=== PATIENT | male | born 1970 | race Caucasian/White ===

== ENCOUNTER 2020-04-10 19:28 | Emergency (ER) | payer MEDICAID ==
[~2020-04-10] VITALS: Ht 182.9 cm; Wt 99.8 kg
[2020-04-10] MEDS ORDERED: FLUO20CA36 PO (19:38)
[2020-04-10] MEDS ORDERED: [UNRECOGNIZED DRUG - OTHER] (19:38)
[2020-04-10] MEDS ORDERED: IBUP-1957 PO (19:38)
[2020-04-10] MEDS ORDERED: BUPR-96 PO (19:38)
[2020-04-10] MEDS ORDERED: DIVA500T2 PO (19:38)
[2020-04-10] MEDS ORDERED: ARIP10TA9 PO (19:38)
[2020-04-10] MEDS ORDERED: LIDOCAINE HCL 2% 20 ML VIAL TP ONE (20:30)
[2020-04-10 21:19] VITALS: BP 118/85
--- NOTE | 2020-04-10 21:19 | NUR ---
Patient discharged to home in stable condition. Written and verbal after care instructions given. Patient verbalizes understanding of instructions. Stressed follow up or return to ER for worsening s/s.
== END 2020-04-10 21:20 | disposition home or self-care (01) ==
LOC: ER 19:31
DX: L02.413 Cutaneous abscess of right upper limb (principal); S51.811S Laceration without foreign body of right forearm, sequela; W26.8XXS Contact with other sharp object(s), not elsewhere classified, sequela; Z79.899 Other long term (current) drug therapy; F31.9 Bipolar disorder, unspecified; F17.200 Nicotine dependence, unspecified, uncomplicated
CPT/HCPCS: 10060; 99283; J3490; A4663

== ENCOUNTER 2020-04-12 15:17 | Emergency (ER) | payer MEDICAID ==
[~2020-04-12] VITALS: Ht 182.9 cm; Wt 99.8 kg
[~2020-04-12 15:17] MED LIST: ARIP10TA9 PO; BUPR-96 PO; DIVA500T2 PO; FLUO20CA36 PO; IBUP-1957 PO; [UNRECOGNIZED DRUG - OTHER]
[2020-04-12] MEDS ORDERED: SULF1TAB48 PO (15:26)
--- NOTE | 2020-04-12 15:30 | NUR ---
Dr. Jo at bedside for MSE
--- NOTE | 2020-04-12 15:45 | NUR ---
Patient discharged to home in stable condition. Written and verbal after care instructions given. Patient verbalizes understanding of instructions. Stressed follow up or return to ER for worsening s/s. Patient ambulated with steady gait. NAD noted
[2020-04-12 16:04] VITALS: BP 138/72
== END 2020-04-12 15:45 | disposition home or self-care (01) ==
LOC: ER 15:19
DX: Z48.817 Encounter for surgical aftercare following surgery on the skin and subcutaneous tissue (principal); L02.413 Cutaneous abscess of right upper limb; F31.9 Bipolar disorder, unspecified; Z79.899 Other long term (current) drug therapy
CPT/HCPCS: A4663

== ENCOUNTER 2020-04-16 18:22 | Emergency (ER) | payer MEDICAID ==
[~2020-04-16] VITALS: Ht 182.9 cm; Wt 99.8 kg
[~2020-04-16 18:22] MED LIST changes: +SULF1TAB48 PO
[2020-04-16] MEDS ORDERED: BICT1TAB PO (18:52)
[2020-04-16] MEDS ORDERED: VANCOMYCIN IV 200 ML ONE (18:59)
[2020-04-16] MEDS ORDERED: VANCOMYCIN IV 1,000 MG in IV DEXTROSE 5% 250 ML IV ONE (19:00)
--- NOTE | 2020-04-16 19:00 | NUR ---
Received patient from frannymavenu GUERRERO MD noted in room for assessment
[2020-04-16 19:02] LABS: BASOPHILS # (AUTO) 0.1 K/uL (0.0-8.0); BASOPHILS % (AUTO) 0.8 % (0.0-2.0); EOSINOPHILS # (AUTO) 0.1 K/uL (0.0-0.7); EOSINOPHILS % (AUTO) 1.9 % (0.0-7.0); HEMATOCRIT 42.6 % (36.7-47.1); HEMOGLOBIN 14.7 g/dL (12.5-16.3); LYMPHOCYTES # (AUTO) 1.7 K/uL (20.0-40.0); LYMPHOCYTES % (AUTO) 24.7 % (20.5-51.5); MEAN CORPUSCULAR HEMOGLOBIN 31.9 uug (23.8-33.4); MEAN CORPUSCULAR HGB CONC 35 g/dL (32.5-36.3); MEAN CORPUSCULAR VOLUME 92.2 fL (73.0-96.2); MONOCYTES # (AUTO) 0.7 K/uL (2.0-10.0); MONOCYTES % (AUTO) 9.8 % (0.0-11.0); NEUTROPHILS # (AUTO) 4.2 K/uL (1.8-8.9); NEUTROPHILS % (AUTO) 62.8 % (38.5-71.5); PLATELET COUNT (AUTO) 227 K/uL (152-348); RED BLOOD CELL COUNT(AUTO) 4.62 MIL/uL (4.06-5.63); WHITE BLOOD COUNT (AUTO) 6.7 K/uL (3.6-10.2)
[2020-04-16 19:09] LABS: CREATININE 1.2 mg/dL (0.6-1.3); POTASSIUM 3.9 mmol/L (3.5-5.1)
--- NOTE | 2020-04-16 20:21 | NUR ---
IV discontinued at this time, right forearm abcess margins marked and patient instructed to return in skin redness extends past marked margins
--- NOTE | 2020-04-16 20:22 | NUR ---
Patient discharged to home in stable condition. Ambulated with steady gait, took all belongings, no distress noted, Written and verbal after care instructions given. Patient verbalizes understanding of instructions. Stressed follow up or return to ER for worsening s/s.
[2020-04-16 20:23] VITALS: BP 113/77
== END 2020-04-16 20:21 | disposition home or self-care (01) ==
LOC: ER 18:24
DX: Z48.817 Encounter for surgical aftercare following surgery on the skin and subcutaneous tissue (principal); L02.414 Cutaneous abscess of left upper limb; F31.9 Bipolar disorder, unspecified; F17.200 Nicotine dependence, unspecified, uncomplicated
CPT/HCPCS: 36415; 80048; 85025; 87070; 96365; 99284; J3370; A4663

== ENCOUNTER 2021-10-06 21:22 | Emergency (ER) | payer MEDICAID ==
[~2021-10-06] VITALS: Ht 182.9 cm; Wt 103.0 kg
[~2021-10-06 21:22] MED LIST changes: +BICT1TAB PO; -SULF1TAB48 PO; -[UNRECOGNIZED DRUG - OTHER]
[2021-10-06] MEDS: ASPIRIN 81 MG TAB.CHEW PO ONE (22:12)
[2021-10-06 22:20] LABS: CARBON DIOXIDE 27 mmol/L (21-32); CHLORIDE 104 mmol/L (98-107); CREATININE 0.9 mg/dL (0.6-1.3); GLUCOSE 136 mg/dL (74-106); HEMATOCRIT 44.2 % (36.7-47.1); PLATELET COUNT (AUTO) 215 K/uL (152-348); POTASSIUM 3.6 mmol/L (3.5-5.1); UREA NITROGEN, BLOOD 18 mg/dL (7-18)
[2021-10-06] MEDS ORDERED: ASPIRIN 81 MG TAB.CHEW ONE (22:20)
[2021-10-06 22:33] LABS: ALANINE AMINOTRANSFERASE 32 U/L (16-63); ALKALINE PHOSPHATASE 84 U/L (50-136); ASPARTATE AMINOTRANSFERASE 14 U/L (15-37); BILIRUBIN,DIRECT 0.1 mg/dL (0.0-0.2); BILIRUBIN,TOTAL 0.5 mg/dL (0.2-1.0); TOTAL PROTEIN, SERUM 7.1 g/dL (6.4-8.2)
--- NOTE | 2021-10-06 23:23 | NUR ---
cleared for d/c by MD. [facility] instructions provided in verbal and written form, pt verbalised understanding. MD and RN stressed need for follow up following todays vist and S/S of worsening condition that would require return to ER for. pt ambulated out of dept under own power, NAD noted.
[2021-10-06 23:30] VITALS: BP 132/79
== END 2021-10-06 23:34 | disposition home or self-care (01) ==
LOC: ER 21:25
DX: R07.2 Precordial pain (principal); F17.210 Nicotine dependence, cigarettes, uncomplicated; F31.9 Bipolar disorder, unspecified; R60.0 Localized edema; Z79.899 Other long term (current) drug therapy
CPT/HCPCS: 36415; 71045; 83735; 84443; 84484; 85025; 85730; 93005; A4663

== ENCOUNTER 2022-05-15 12:15 | Emergency (ER) | payer MEDICAID ==
[~2022-05-15] VITALS: Ht 182.9 cm; Wt 99.8 kg
--- NOTE | 2022-05-15 12:30 | NUR ---
patient seen by dr. brandon
[2022-05-15] MEDS ORDERED: SULF1TAB48 PO (12:36)
[2022-05-15] MEDS ORDERED: MUPI22OI2 TP (12:36)
[2022-05-15] MEDS ORDERED: CEPH500C2 PO (12:36)
--- NOTE | 2022-05-15 12:45 | NUR ---
discharge paper work given to patient.
== END 2022-05-15 12:55 | disposition home or self-care (01) ==
LOC: ER 12:15
DX: J34.0 Abscess, furuncle and carbuncle of nose (principal); F17.210 Nicotine dependence, cigarettes, uncomplicated; F31.9 Bipolar disorder, unspecified; Z79.899 Other long term (current) drug therapy
CPT/HCPCS: A4663

== ENCOUNTER 2022-05-17 01:49 | Emergency (ER) | payer MEDICAID ==
[~2022-05-17] VITALS: Ht 182.9 cm; Wt 102.1 kg
[~2022-05-17 01:49] MED LIST changes: +CEPH500C2 PO; -FLUO20CA36 PO; +MUPI22OI2 TP; +SULF1TAB48 PO
[2022-05-17] MEDS ORDERED: OXYCODONE/APAP 5-325 MG TABLET PO ONE (02:15)
[2022-05-17] MEDS ORDERED: VANCOMYCIN IV 1,000 MG in IV DEXTROSE 5% 250 ML IV ONE (02:15)
[2022-05-17] MEDS ORDERED: PIPERACILLIN SODIUM/TAZOBACTAM 3.375 G in IV DEXTROSE 5% 50 ML IV ONE (02:15)
--- NOTE | 2022-05-17 02:18 | NUR ---
Sandeep quach in [facility] - 05/17/22 at 0344 by [email or web address] Patient back from ct scan with no distress noted
[2022-05-17] MEDS ORDERED: VANCOMYCIN IV 200 ML ONE (02:27)
[2022-05-17] MEDS ORDERED: PIPERACILLIN/TAZOBACTAM/D5W 50 ML IV ONE (02:27)
[2022-05-17] MEDS ORDERED: OXYCODONE/APAP 5-325 MG TABLET ONE (02:28)
[2022-05-17] MEDS ORDERED: IOHEXOL 300MG/ML 100 ML INFUS..BTL ONE (02:48)
[2022-05-17] MEDS ORDERED: SWABABLE VALVE TRANSFER SET EA MC ONE (02:48)
[2022-05-17] MEDS ORDERED: IV NORMAL SALINE 250 ML IV ONE (02:49)
--- NOTE | 2022-05-17 02:57 | NUR ---
Patient out of unit for ct scan via wheelchair with no distress noted.
[2022-05-17 03:10] LABS: HEMATOCRIT 46.5 % (36.7-47.1); MEAN CORPUSCULAR HEMOGLOBIN 31.4 uug (23.8-33.4); MEAN CORPUSCULAR VOLUME 91.9 fL (73.0-96.2); PLATELET COUNT (AUTO) 185 K/uL (152-348)
[2022-05-17 03:15] LABS: CREATININE 1.1 mg/dL (0.6-1.3); POTASSIUM 4.1 mmol/L (3.5-5.1)
--- NOTE | 2022-05-17 03:15 | NUR ---
Patient back from ct scan with no distress noted
[2022-05-17 03:22] LABS: BILIRUBIN,DIRECT 0.1 mg/dL (0.0-0.2); BILIRUBIN,TOTAL 0.4 mg/dL (0.2-1.0); TOTAL PROTEIN, SERUM 7.6 g/dL (6.4-8.2)
--- NOTE | 2022-05-17 03:47 | NUR ---
Paged Epic panel sanitation officer, waiting for Zuleyma Fletcher to call back.
--- NOTE | 2022-05-17 03:49 | NUR ---
Dr. Neil on panel call with Zuleyma Fletcher NP.
[2022-05-17] MEDS ORDERED: REMEDY ESSENTIAL ZINC PASTE 113 GM TP PRN (04:00)
[2022-05-17] MEDS ORDERED: ONDANSETRON 4 MG/2 ML VIAL IV PRN (04:00)
[2022-05-17] MEDS ORDERED: ACETAMINOPHEN 325 MG TABLET PO PRN (04:00)
[2022-05-17] MEDS ORDERED: MAGNESIUM HYDROXIDE 30 ML LIQUID UDC PO PRN (04:00)
[2022-05-17] MEDS ORDERED: IV NS 1000 ML 1,000 ML IV PRN (04:00)
[2022-05-17] MEDS ORDERED: CLINDAMYCIN PHOSPHATE 600 MG/4 ML VIAL ONE (05:13)
[2022-05-17] MEDS ORDERED: CLINDAMYCIN PHOSPHATE IV 600 MG in IV DEXTROSE 5% 100 ML IV ONE ×3 (05:15→21:30)
[2022-05-17] MEDS ORDERED: PANTOPRAZOLE SODIUM 40 MG TABLET.DR PO SCH (07:00)
[2022-05-17] MEDS ORDERED: PANTOPRAZOLE SODIUM 40 MG TABLET.DR PO ONE (07:42)
[2022-05-17] MEDS ORDERED: CEFEPIME HCL 1 G in IV DEXTROSE 5% 50 ML IV SCH (09:00)
--- NOTE | 2022-05-17 09:08 | NUR ---
PT IS RESTING IN BED IN ROOM #1B. DR CHENG TALKED TO ER MD HELLER , CANCELLED PT's ADMISSION TO M/S FLOOR AND ASKED ENGAGEMENT EXECUTIVE TO ARRANGE PT's TRANSFER TO THE [facility].
[2022-05-17] MEDS ORDERED: HYDROCODONE/APAP 5-325MG TABLET ONE ×2 (10:12→14:32)
[2022-05-17] MEDS: HYDROCODONE/APAP 5-325MG TABLET PO PRN ×2 (10:14→14:40)
--- NOTE | 2022-05-17 10:14 | NUR ---
DR HELLER CANCELLED VANCOMYCIN IV ADMINISTRATION.
--- NOTE | 2022-05-17 11:00 | NUR ---
DR HELLER TALKED TO PT's PIPELINE GANG SUPERVISOR ABOUT PT's TRANSFER TO [facility].
[2022-05-17] MEDS ORDERED: VANCOMYCIN IV 1,500 MG in IV DEXTROSE 5% 500 ML IV SCH (13:00)
[2022-05-17] MEDS ORDERED: CLINDAMYCIN PHOSPHATE IV 600 MG in IV DEXTROSE 5% 100 ML IV SCH ×2 (13:15→13:30)
--- NOTE | 2022-05-17 14:06 | NUR ---
CORPORATE AUDITOR CALLED AND TALKED TO DR HELLER ABOUT PT's TRANSFER TO [facility]. PT STILL GOING TO WAIT , BECAUSE NO AVAILABLE ROOMS IN [facility] AT THIS TIME.
--- NOTE | 2022-05-17 18:27 | NUR ---
PT DECIDED TO LEAVE HOSPITAL AMA. DR HELLER EXPLAINED ALL RISKS OF LEAVING HOSPITAL ER AMA. PT VERBALISED FULL UNDERSTANDING. PT SIGNED AMA FORM AND LEFT HOSPITAL WITH HIS FRIEND BY TAXI.
[2022-05-17 18:34] VITALS: BP 142/75
[2022-05-18] MEDS ORDERED: CLINDAMYCIN PHOSPHATE IV 600 MG in IV DEXTROSE 5% 100 ML IV ONE (05:30)
== END 2022-05-17 18:36 | disposition left against medical advice (07) ==
LOC: ER 01:49
DX: K04.7 Periapical abscess without sinus (principal); J34.0 Abscess, furuncle and carbuncle of nose; R00.0 Tachycardia, unspecified; F17.210 Nicotine dependence, cigarettes, uncomplicated; D72.828 Other elevated white blood cell count; Z20.822 Contact with and (suspected) exposure to COVID-19; Z53.29 Procedure and treatment not carried out because of patient's decision for other reasons; L03.211 Cellulitis of face
CPT/HCPCS: 99285; 96365; 70487; 96367; 96361; 96366 ×2; 87426; 80076; 80048; 83735; 85025; 87040 ×2; 36415; 83605; J3490; Q9967; J2543; J3370; J7040; A4663

== ENCOUNTER 2023-03-03 20:58 | Emergency (ER) | payer MEDICAID ==
[~2023-03-03] VITALS: Ht 182.9 cm; Wt 98.4 kg
[~2023-03-03 20:58] MED LIST changes: -ARIP10TA9 PO; -BUPR-96 PO; -DIVA500T2 PO
[2023-03-03] MEDS ORDERED: CEFTRIAXONE 1 G VIAL ONE (21:24)
[2023-03-03] MEDS ORDERED: CLINDAMYCIN HCL 150 MG CAPSULE ONE (21:25)
[2023-03-03] MEDS ORDERED: LIDOCAINE HCL 1% 20 ML VIAL ONE (21:25)
[2023-03-03] MEDS ORDERED: CLINDAMYCIN HCL 150 MG CAPSULE PO ONE (21:30)
[2023-03-03] MEDS ORDERED: CEFTRIAXONE 1 G VIAL IM ONE (21:30)
[2023-03-03] MEDS ORDERED: CLIN300C12 PO (21:30)
[2023-03-03 21:49] VITALS: BP 142/89; O2SAT 97
== END 2023-03-03 21:49 | disposition home or self-care (01) ==
LOC: ER 20:58
DX: S30.860A Insect bite (nonvenomous) of lower back and pelvis, initial encounter (principal); L03.317 Cellulitis of buttock; F17.210 Nicotine dependence, cigarettes, uncomplicated; Z71.6 Tobacco abuse counseling; Z79.1 Long term (current) use of non-steroidal anti-inflammatories (NSAID); Z79.899 Other long term (current) drug therapy; W57.XXXA Bitten or stung by nonvenomous insect and other nonvenomous arthropods, initial encounter; Y93.89 Activity, other specified; Y92.89 Other specified places as the place of occurrence of the external cause; Y99.8 Other external cause status
CPT/HCPCS: 99283; 99406; 96372; J0696; J3490; A4663

== ENCOUNTER 2024-08-07 02:29 | Emergency (ER) | payer MEDICAID ==
[~2024-08-07] VITALS: Ht 182.9 cm; Wt 104.3 kg
[~2024-08-07 02:29] MED LIST changes: +CLIN300C12 PO
[2024-08-07 03:31] LABS: BASOPHILS % (AUTO) 0.3 % (0.0-2.0); EOSINOPHILS # (AUTO) 0.1 K/uL (0.0-0.7); EOSINOPHILS % (AUTO) 0.6 % (0.0-7.0); HEMATOCRIT 47.4 % (36.7-47.1); HEMOGLOBIN 16.4 g/dL (12.5-16.3); LYMPHOCYTES # (AUTO) 1.5 K/uL (0.8-4.8); LYMPHOCYTES % (AUTO) 10.3 % (20.5-51.5); MEAN CORPUSCULAR HEMOGLOBIN 32.9 uug (23.8-33.4); MEAN CORPUSCULAR HGB CONC 35 g/dL (32.5-36.3); MEAN CORPUSCULAR VOLUME 95.2 fL (73.0-96.2); MONOCYTES # (AUTO) 1.2 K/uL (0.1-1.30); MONOCYTES % (AUTO) 8.1 % (0.0-11.0); NEUTROPHILS # (AUTO) 12.1 K/uL (1.8-8.9); NEUTROPHILS % (AUTO) 80.7 % (38.5-71.5); PLATELET COUNT (AUTO) 139 K/uL (152-348); RED BLOOD CELL COUNT(AUTO) 4.98 MIL/uL (4.06-5.63); RED CELL DISTRIBUTION WIDTH 13.7 % (12.1-16.2)
[2024-08-07 03:34] LABS: DIFFERENTIAL COMMENT 1
[2024-08-07 03:41] LABS: CALCIUM 8.3 mg/dL (8.5-10.1); CREATININE 0.9 mg/dL (0.6-1.3)
[2024-08-07] MEDS ORDERED: IOHEXOL 350 100 ML INFUS..BTL ONE (03:46)
[2024-08-07 03:47] LABS: ALBUMIN 3.4 g/dL (3.4-5.0); BILIRUBIN,TOTAL 0.7 mg/dL (0.2-1.0); TOTAL PROTEIN, SERUM 7.5 g/dL (6.4-8.2)
[2024-08-07] MEDS ORDERED: KETOROLAC TROMETHAMINE 30 MG INJ ONE (04:48)
[2024-08-07] MEDS ORDERED: CLINDAMYCIN 600 MG PIGGYBACK**ER OMNI IV ONE (04:49)
[2024-08-07] MEDS: CLINDAMYCIN PHOSPHATE IV 600 MG in IV DEXTROSE 5% 100 ML IV ONE (04:52)
[2024-08-07] MEDS: KETOROLAC TROMETHAMINE 30 MG INJ IVP ONE (04:53)
[2024-08-07] MEDS ORDERED: CLIN-118 PO (06:25)
[2024-08-07] MEDS ORDERED: KETO10TA2 PO (06:31)
[2024-08-07 06:39] VITALS: BP 128/74; TEMP 98.5; O2SAT 97
== END 2024-08-07 06:41 | disposition home or self-care (01) ==
LOC: ER 02:33
DX: L02.01 Cutaneous abscess of face (principal); K11.20 Sialoadenitis, unspecified; F17.210 Nicotine dependence, cigarettes, uncomplicated; Z60.2 Problems related to living alone; Z88.7 Allergy status to serum and vaccine
CPT/HCPCS: 99285; 96374; 70487; 96375; 80053; 85025; 87040; 36415; J1885; J3490 ×2; Q9967; A4606; A4663

== ENCOUNTER 2024-09-07 20:13 | Emergency (ER) | payer MEDICAID ==
[~2024-09-07] VITALS: Ht 182.9 cm; Wt 97.5 kg
[~2024-09-07 20:13] MED LIST changes: +CLIN-118 PO; +KETO10TA2 PO
[2024-09-07 21:15] LABS: *BILIRUBIN,URIN NEGATIVE (NEGATIVE); *CLARITY,URINE SLIGHTLY CLOUDY (CLEAR); *COLOR,URINE YELLOW (YELLOW); *KETONES,URINE TRACE (NEGATIVE); *PROTEIN,URINE NEGATIVE (NEGATIVE); *UROBILINOGEN,URINE 0.2 E.U./dl (NORMAL); LEUKOCYTE ESTERASE ,URINE NEGATIVE (NEGATIVE); NITRITE, URINE NEGATIVE (NEGATIVE); UGLUCOSE NEGATIVE (NEGATIVE)
[2024-09-07 21:23] LABS: BASOPHILS % (AUTO) 0.6 % (0.0-2.0); EOSINOPHILS # (AUTO) 0.1 K/uL (0.0-0.7); EOSINOPHILS % (AUTO) 1.1 % (0.0-7.0); HEMATOCRIT 43.3 % (36.7-47.1); HEMOGLOBIN 15.3 g/dL (12.5-16.3); LYMPHOCYTES # (AUTO) 1.5 K/uL (0.8-4.8); LYMPHOCYTES % (AUTO) 24.2 % (20.5-51.5); MEAN CORPUSCULAR HEMOGLOBIN 32.3 uug (23.8-33.4); MEAN CORPUSCULAR HGB CONC 35 g/dL (32.5-36.3); MEAN CORPUSCULAR VOLUME 91.7 fL (73.0-96.2); MONOCYTES # (AUTO) 0.6 K/uL (0.1-1.30); MONOCYTES % (AUTO) 10.1 % (0.0-11.0); NEUTROPHILS # (AUTO) 4.1 K/uL (1.8-8.9); PLATELET COUNT (AUTO) 173 K/uL (152-348); RED BLOOD CELL COUNT(AUTO) 4.73 MIL/uL (4.06-5.63); RED CELL DISTRIBUTION WIDTH 13.8 % (12.1-16.2); WHITE BLOOD COUNT (AUTO) 6.4 K/uL (3.6-10.2)
[2024-09-07 21:27] LABS: DIFFERENTIAL COMMENT 1
[2024-09-07 21:28] LABS: *BLOOD, URINE TRACE (NEGATIVE)
[2024-09-07 21:35] LABS: CALCIUM 8.9 mg/dL (8.5-10.1); CARBON DIOXIDE 28 mmol/L (21-32); CHLORIDE 105 mmol/L (98-107); CREATININE 0.9 mg/dL (0.6-1.3); GLUCOSE 101 mg/dL (74-106); POTASSIUM 3.2 mmol/L (3.5-5.1); SODIUM SERUM 141 mmol/L (136-145); UREA NITROGEN, BLOOD 9 mg/dL (7-18)
[2024-09-07 21:39] LABS: BACTERIA,URINE NONE SEEN /HPF (NONE SEEN); RBC,URINE 0-3 /HPF (0-3); SQUAMOUS EPITHELIAL CELL,UR NONE SEEN /HPF (NONE SEEN); WBC,URINE 0-3 /HPF (0-3)
[2024-09-07 21:40] LABS: ETHANOL < 3 MG/DL (0-10)
[2024-09-07 21:44] LABS: *AMPHETAMINE, URINE POSITIVE (NEGATIVE); *BARBITURATE, URINE NEGATIVE (NEGATIVE); *BENZODIAZEPINE, URINE NEGATIVE (NEGATIVE); *CANNABINOID, URINE NEGATIVE (NEGATIVE); *COCCAINE, URINE NEGATIVE (NEGATIVE); *OPIATE, URINE NEGATIVE (NEGATIVE); *PHENCYCLIDINE SCREEN,URINE NEGATIVE (NEGATIVE); FENTANYL, URINE NEGATIVE (NEGATIVE)
[2024-09-07 21:47] LABS: ALANINE AMINOTRANSFERASE 34 U/L (16-63); ALBUMIN 3.6 g/dL (3.4-5.0); ALKALINE PHOSPHATASE 68 U/L (50-136); ASPARTATE AMINOTRANSFERASE 16 U/L (15-37); BILIRUBIN,TOTAL 0.5 mg/dL (0.2-1.0); TOTAL PROTEIN, SERUM 6.9 g/dL (6.4-8.2)
[2024-09-07 21:48] LABS: NT-PRO BNP 8 pg/mL (0-125)
[2024-09-07] MEDS ORDERED: POTASSIUM CHLORIDE 20 MEQ TAB.PRT.SR PO ONE (22:30)
[2024-09-08 00:32] VITALS: BP 135/82; TEMP 98.7; O2SAT 99
== END 2024-09-08 00:35 | disposition home or self-care (01) ==
LOC: ER 20:16
DX: R06.02 Shortness of breath (principal); R06.03 Acute respiratory distress; F17.210 Nicotine dependence, cigarettes, uncomplicated; Z60.2 Problems related to living alone; Z88.7 Allergy status to serum and vaccine
CPT/HCPCS: 36415; 71045; 84484; 85025; A4606; A4663; G0480